=== PATIENT | female | born 1995 | race African-American/Black ===

== ENCOUNTER 2023-02-05 13:13 | Emergency (ER) | payer SELFPAY ==
--- OUTSIDE RECORDS SUMMARY | 2023-02-05 13:17 | XMS REPORT | Continuity of Care Document ---
:1995 Author Organization [facility] t Address [address] [place] [address] Care Team Providers Name Role Phone Pcp, Patient Does Not Have A Primary Care Physician [phone] MIRTA AYOUB Attending Clinician Unavailable Mirta Parekh Attending Clinician AVE BUTTERFIELD Attending Clinician Unavailable Ave Butter[place] DO Attending Clinician GABBIE DIEGO Attending Clinician Unavailable Gabbie Diego DO Attending Clinician Sharon Youngblood Attending Clinician SHARON MAR Attending Clinician Unavailable IRAM BURTON Attending Clinician Unavailable Constance Schroeder Attending Clinician Unavailable Constance Schroeder Attending Clinician Unavailable Gary Mims Attending Clinician Unavailable FelicitaGary leblanc Attending Clinician Unavailable Constance Schroeder Admitting Clinician Unavailable FelicitaGary leblanc Admitting Clinician Unavailable Payers Payer Name Policy Type Policy Number Effective Date Expiration Date S ource Problems Condition Condition Condition Status Onset Resolution Last Treating Co mments Source Name Details Category Date Date Treatment Clinician Date No known No known Disease Unive rs active active ity of problems problems [facility] Allergies, Adverse Reactions, Alerts Allergy Allergy Status Severity Reaction(s) Onset Inactive Treating Comm ents Source Name Type Date Date Clinician ANIL DRUG Active Anaphylaxis Unive rs INGREDI 01-17 ity of 00:00: [place] 00 Medical Branch Anil Propensi Active Anaphylaxis Uni vers ty to 01-17 ity of adverse 00:00: [place] reaction 00 Medical s Branch No Known DA Active U [facility] Allergie 12-18 Clear s 00:00: [place] 00 [facility] No Known Drug Active [facility] NO KNOWN Drug Active [facility] ALLERG Class ity of S [facility] Social History Social Habit Start Date Stop Date Quantity Comments Source Exposure to 2022-07-10 2022-07-20 Not sure [facility] SARS-CoV-2 (event) 00:00:00 15:59:00 [facility] Sex Assigned At [birth year] [facility] [place] 00:00:00 00:00:00 Medical Branch Smoking Status Start Date Stop Date Source Tobacco smoking consumption [facility] Medical unknown Branch Medications Ordered Filled Start Stop Current Ordering Indication Dosage Frequency Signature Comments Components Source Medication Medication Date Date Medication? Clinician (SIG) Name Name Nitrofurant 2022- No [id number] 100mg Take 1 Univers oin&Nit. 07-20 capsule by ity of [place] 00:00: 05:59 mouth in [place] 100 mg 00 :00 the Medical capsule morning Branch and 1 capsule in the evening. Do all this for 5 days. metroNIDAZO 2021-06 Yes [id number] 500mg Take 1 Univers LE 500 mg 0-15 tablet by ity o f tablet 00:00: mouth in [place] 00 the Medical morning Branch and 1 tablet in the evening. metroNIDAZO 2021-06 Yes [id number] 500mg Take 1 Univers LE 500 mg 0-15 tablet by ity o f tablet 00:00: mouth in [place] 00 the Medical morning Branch and 1 tablet in the evening. cefTRIAXone Yes 500mg 500 mg, Un ambika (ROCEPHIN) 01-18 Intramuscu ity of injection 02:45: lar, Q24H, [place] 500 mg 00 First dose Medical on [facility] Branch 01/17/22 at 2145, Until Discontinu ed, RADAMES
Re ason for Anti-Infec tive: Empiric Therapy for Suspected Infection< br>Empiric Therapy Site: Pelvic
Duration of therapy: 72 hours azithromyci 2021- No 1000mg 1,000 mg, Univers n 01-18 Oral, ity of (ZITHROMAX) 01:45: 01:48 ONCE, 1 [place] tablet 00 :00 dose, On Medical 1,000 mg [facility] Branch 01/17/22 at 2045, RADAMES
Re ason for Anti-Infec tive: Empiric Therapy for Suspected Infection< br>Empiric Therapy Site: Pelvic
Duration of therapy: 72 hours sulfamethox 2021- No [id number] 1{tbl} Take 1 Univers azole-trime 01-17 tablet by it y of thoprim 00:00: 04:59 mouth [place] 800-160 mg 00 :00 every 12 Medic al per tablet (twelve) Branc h hours for 3 days. cefTRIAXone Yes 500mg 500 mg, Un ambika (ROCEPHIN) 01-14 Intramuscu ity of injection 23:00: lar, Q24H, [place] 500 mg 00 First dose Medical on [place] Branch 01/14/21 at 1800, Until Discontinu ed, RADAMES
Re ason for Anti-Infec tive: Empiric Therapy for Suspected Infection< br>Empiric Therapy Site: Abdominal< br>Duratio n of therapy: 72 hours doxycycline 2020- No 100mg 100 mg, U nivers hyclate 01-14 Oral, ity of (Vibramycin 23:00: 22:05 ONCE, 1 [place] capsule 00 :00 dose, Sun Medic al 100 mg 01/14/21 at Branch 1800, RADAMES
Re ason for Anti-Infec tive: Documented Infection< br>Documen kayce Infection Site: Pelvic
Duration of Therapy: 7 days cephALEXin 2020- No [id number] 500mg Take 1 Univers 500 mg 01-14 tablet by ity of tablet 00:00: 04:59 mouth 2 [place] 00 :00 (two) Medical times [place] daily for 7 days. doxycycline 2020- No [id number] 100mg Take 1 Univers hyclate 100 01-14 capsule by i ty of mg capsule 00:00: 04:59 mouth 2 [place] as 00 :00 (two) Medical times [place] daily for 7 days. Vital Signs Vital Name Observation Time Observation Value Comments Source Systolic blood 2022-07-21 00:37:00 117 mm[Hg] Univer sity of [facility] Diastolic blood 2022-07-21 00:37:00 80 mm[Hg] Unive rsity of [facility] Heart rate 2022-07-21 00:37:00 80 /min Universi ty of [facility] Respiratory rate 2022-07-21 00:37:00 18 /min [facility] Oxygen saturation in 2022-07-21 00:37:00 100 /min [facility] Arterial blood by [facility] Pulse oximetry Branch Body temperature 2022-07-20 21:57:00 37.11 Mary [facility] ersity [facility] Body height 2022-07-20 21:57:00 157.5 cm Universi ty [facility] Body weight 2022-07-20 21:57:00 55.792 kg Universi ty [facility] BMI 2022-07-20 21:57:00 22.50 kg/m2 Universi ty [facility] Systolic blood 2022-04-13 21:34:00 102 mm[Hg] Univer sity of [facility] Diastolic blood 2022-04-13 21:34:00 72 mm[Hg] Unive rsity of [facility] Heart rate 2022-04-13 21:34:00 85 /min Universi ty [facility] Body temperature 2022-04-13 21:34:00 36.56 Mary Univ ersity of [facility] Respiratory rate 2022-04-13 21:34:00 14 /min Univ ersity [facility] Body height 2022-04-13 21:34:00 154.9 cm Universi ty [facility] Body weight 2022-04-13 21:34:00 56.7 kg Universi ty [facility] [place] [facility] BMI 2022-04-13 21:34:00 23.62 kg/m2 [facility]i [facility] [place] [facility] Oxygen saturation in 2022-04-13 21:34:00 99 /min University of Arterial blood by [facility] Pulse oximetry Branch Systolic blood 2022-01-18 02:45:25 101 mm[Hg] Univer sity of pressure [place] [facility] Diastolic blood 2022-01-18 02:45:25 74 mm[Hg] Unive rsity of pressure [place] [facility] Heart rate 2022-01-18 02:45:25 73 /min Universi ty [facility] [place] [facility] Body temperature 2022-01-18 02:45:25 36.61 Mary Univ [facility] [place] [facility] Respiratory rate 2022-01-18 02:45:25 16 /min Univ ers[facility] [place] [facility] Oxygen saturation in 2022-01-18 02:45:25 99 /min University of Arterial blood by [facility] Pulse oximetry Branch Body height 2022-01-18 01:33:00 154.9 cm Universi ty [facility] [place] [facility] Body weight 2022-01-18 01:33:00 56.7 kg [facility]i ty [facility] [place] [facility] BMI 2022-01-18 01:33:00 23.62 kg/m2 [facility] [place] [facility] Systolic blood 2021-01-14 20:22:00 106 mm[Hg] Univer sity of pressure [place] [facility] Diastolic blood 2021-01-14 20:22:00 69 mm[Hg] Unive rsity of pressure [place] [facility] Heart rate 2021-01-14 20:22:00 87 /min Universi ty [facility] [place] [facility] Body temperature 2021-01-14 20:22:00 36.44 Mary Univ [facility] [place] [facility] Respiratory rate 2021-01-14 20:22:00 14 /min Univ ers[facility] [place] [facility] Body height 2021-01-14 20:22:00 154.9 cm [facility]i [facility] [place] [facility] Body weight 2021-01-14 20:22:00 52.164 kg [facility] [place] [facility] BMI 2021-01-14 20:22:00 21.73 kg/m2 [facility] [place] [facility] Oxygen saturation in 2021-01-14 20:22:00 98 /min University of Arterial blood by [facility] Pulse oximetry Branch Height/Length 2021-07-17 12:08:20 156 cm Measured Height/Length 2021-07-17 12:08:16 156 cm Measured Height/Length 2021-07-17 12:08:14 156 cm Measured Height/Length 2020-02-28 22:08:30 Measured Height/Length 2020-01-02 07:39:58 Measured Height/Length 2021-07-17 11:12:12 154 cm Measured Procedures Procedure Date / Time Performed Performing Clinician Sourc e URINALYSIS 2022-07-20 22:33:00 Mirta Ayoub [place] [facility] CONSENT/REFUSAL FOR 2022-07-20 21:51:15 Doctor Unassigned, No Un [facility] [place] DIAGNOSIS AND Name Medical Branch TREATMENT POCT TEST 2022-04-13 21:49:00 [address] Butterfield [facility] URINALYSIS 2022-04-13 21:47:00 Ave Butterfield [facility] ADC CLC OR LCC ONLY - 2022-04-13 21:47:00 Ave Butterfield [facility] CONSENT/REFUSAL FOR 2022-04-13 21:27:36 Doctor Unassigned, No Un [facility] [place] DIAGNOSIS AND Name Medical Branch TREATMENT POCT TEST 2022-01-18 01:54:00 [facility] [facility] 2022-01-18 01:45:00 Gabbie Diego [facility] NOTICE OF PRIVACY 2022-01-18 01:24:56 Doctor Unassigned, No [facility] Name Medical Branch CONSENT/REFUSAL FOR 2022-01-18 01:24:02 Doctor Unassigned, No Un [facility] [place] DIAGNOSIS AND Name Medical Branch TREATMENT POCT TEST 2021-01-14 21:08:00 Sharon Mar [facility] [facility] 2021-01-14 21:04:00 Sharon Mar [facility] NOTICE OF PRIVACY 2021-01-14 20:20:33 Doctor Unassigned, No Univ [facility] [place] [facility] Name Medical Branch CONSENT/REFUSAL FOR 2021-01-14 20:19:39 Doctor Unassigned, No Un [facility] DIAGNOSIS AND Name Medical Branch TREATMENT Encounters Start End Encounter Admission Attending Care Care Encounter Source Date/Time Date/Time Type Type Clinicians Facility Department ID 2022-07-20 2022-07-20 Emergency X ANITRA [facility] ERT [id number] Univers 15:59:00 18:43:00 MIRTA porras [facility] 2022-07-20 2022-07-20 Emergency Anitra [facility] [id number] Univers 15:59:00 18:43:00 Mirta Fuentes JENNIFER [id number] i ty of [facility] [id number] [facility] [id number] [address] 2022-04-13 2022-04-13 Emergency X SINGER [facility] ERT [id number] Univers 16:51:00 18:13:[address] porras [facility] 2022-04-13 2022-04-13 Emergency [facility] [id number] Univers 16:51:00 18:13:[address] RODRIGUEZ [id number] i ty [facility] [id number] [facility] [id number] [address] 2022-01-17 2022-01-17 Emergency X JOHNATHON [facility] ERT [id number] Univers 20:36:00 22:28:00 GABBIE porras [facility] 2022-01-17 2022-01-17 Emergency [facility] [id number] Univers 20:36:00 22:28:00 Gabbie RODRIGUEZ [id number] ity [facility] [id number] [facility] [id number] [address] 2021-01-14 2021-01-14 Emergency [facility] [id number] Univers 15:22:00 17:26:00 Sharon Rodriguez [id number] ity of [place] 4.2.7.2.686 [facility] [id number] [address] 2021-01-14 2021-01-14 Emergency X MIHAI, [facility] ERT [id number] Univers 15:22:00 17:26:00 SHARON porras [facility] 2020-06-13 2020-06-13 Emergency E JOSEPHINE, MHBL MHBL [id number] MHBL 20:08:00 22:15:00 REEVA 2020-02-28 2020-02-29 Emergency 1 [facility]re [facility] [id number] 21:59:00 00:04:00 Constance Schroeder [facility] 2020-02-28 2020-02-28 Emergency [facility] [id number] 21:59:00 21:59:[id number] [facility] 2020-01-02 2020-01-02 Emergency 1 Felicita Gary [facility] [id number] 07:09:00 07:09:00 Felicita Gary -[id number] [facility] 2020-01-02 2020-01-02 Emergency [facility] [id number] 07:09:00 07:09:00 [facility] Results Test Description Test Time Test Comments Results Result Comments Source POCT TEST 2022-04-13 21:49:00 Test Item Value Reference Range Interpretation Comme nts POCT PREG (test code = 1605) negative On board controls acceptable with C Line (test code = 3574) present POCT PREG LOT # (test code = 3575) [id number] POCT PREG TEST DATE (test code = 3576) 08/28/2023 Lab Interpretation (test code = 95145-3) [id number] 01:54:00 Test Item Value Reference Range Interpretation Comments POCT PREG (test code = 1605) negative On board controls acceptable with present C Line (test code = 3574) POCT PREG LOT # (test code = 3575) [id number] POCT PREG TEST DATE (test 04/29/2023 code = 3576) Lab Interpretation (test code = Normal 93542-9) [facility] 21:40:27 Test Item Value Reference Range Interpretation Comments APPEARANCE (test code = Hazy Clear A 1611212345) COLOR (test code = Yellow Yellow 7628803654) PH (test code = 4.8-8.0 6638709948) SP GRAVITY (test code = 1.003-1.030 0936547494) GLU U QUAL (test code = Normal Normal 6035313680) BLOOD (test code = Negative Negative 2544984662) KETONES (test code = Negative Negative 4589108268) PROTEIN (test code = Negative Negative 2887-8) UROBILIN (test code = Normal Normal 3816989957) BILIRUBIN (test code = Negative Negative 0266645044) NITRITE (test code = Positive Negative A 3038597896) LEUK DONNY (test code = 250/uL Negative A 5825250001) RBC/HPF (test code = See_Comment [Autom ated message] 7870206843) The system Picodeon generated this result transmitted ref erence range: 0 - 3 HP F. The reference range was not used to int erpret this result as normal/abnormal . WBC/HPF (test code = See_Comment H [Autom ated message] 0933180398) The system [employer]icode[employer] generated this result transmitted ref erence range: 0 - 5 HP F. The reference range was not used to int erpret this result as normal/abnormal . BACTERIA (test code = Many Negative A 1585932451) MUCOUS (test code = Moderate Negative LPF A 7752650474) SQ EPITH (test code = HPF 8490323020) Lab Interpretation (test Abnormal code = 87329-5) [facility] [id number] 21:08:00 Test Item Value Reference Range Interpretation Comments POCT PREG (test code = 1605) negative On board controls acceptable with present C Line (test code = 3574) POCT PREG LOT # (test code = 3575) [id number] POCT PREG TEST DATE (test 06-29-2022 code = 3576) Lab Interpretation (test code = Normal 53567-1) [facility] [id number] 12:10:16 Test Item Value Reference Range Interpretation Comments Neisseria gonorrhoeae, Negative Negative N Perfo rmed At: [facility] (test code = [facility] Neisseria gonorrhoeae, Misael [id number]) [address] [place], [place] [id number] er Christie Everett MD Ph:[phone] Chlamydia trachomatis, Negative Negative N [facility] (test code = Chlamydia trachomatis, [facility]) Urine [id number] 10:29:51 Test Item Value Reference Range Interpretation Comments ORGANISM (test code = Enterococcus group D ORGANISM) Ampicillin (test code = S Amp) Ciprofloxacin (test code S = Cipro) Gentamicin synergy (test S code = Gent-Syn) Levofloxacin (test code S = Levo) Linezolid (test code = S Linez) Nitrofurantoin (test S code = Nitro) Penicillin (test code = S Pen) Streptomycin synergy S (test code = Strep-Syn) Tetracycline (test code R = Tetra) Vancomycin (test code = S Vanc) Final Report (test code >=100,000 cfu/ml = Final Report) Enterococcus group D C Urine Added by [id number] Qualitative [id number] 23:22:47 Test Item Value Reference Range Interpretation Comments hCG Ur (test code = Negative If the r esult is hCG Ur) "Negative" in p atients suspected to be , recom mend retest with a s ample obtained 48 to 72 hours later, or by ordering a quantitative as say. If the result is "Borderline" te sting should be repea kayce in 48 to 72 hours. Lot # (test code = [id number] N Lot #) Expiration Dt (test 2021-02-27 N code = Expiration Dt) Neg Control (test Negative code = Neg Control) Pos Control (test Positive code = Pos Control) Internal QC (test Acceptable code = Internal QC) Beta HCG [id number] 23:21:47 Test Item Value Reference Range Interpretation Comments HCG, Beta Quantitative <2.6 mIU/mL N 17-54 (test code = HCG, Beta (Non- )?41 Quantitative) (Post-menopaus al) Urinalysis [id number] 23:21:01 Test Item Value Reference Range Interpretation Comments UA WBC (test code = UA WBC) 0-5 0-5 UA RBC (test code = UA RBC) 0-5 0-5 UA Bacteria (test code = UA Moderate A Bacteria) UA Squam Epithelial (test code = UA 30-50 A Squam Epithelial) UA Mucous (test code = UA Mucous) Moderate A Urinalysis with Culture, if [id number] 23:08:20 Test Item Value Reference Range Interpretation Comments UA Color (test code = UA Color) YELLO Yellow UA Appear (test code = UA Appear) SCLD Clear A UA pH (test code = UA pH) 7.0 UA Spec Grav (test code = UA Spec 1.025 1.001-1.035 Grav) UA Glucose (test code = UA NEG Negative Glucose) UA Bili (test code = UA Bili) Small mg/dL N UA Ketones (test code = UA 15 mg/dL Negative A Ketones) UA Blood (test code = UA Blood) NEG Negative UA Protein (test code = UA 30 mg/dL N Protein) UA Urobilinogen (test code = UA 1 mg/dL >0.2 A Urobilinogen) UA Nitrite (test code = UA NEG Negative Nitrite) UA Leuk Est (test code = UA Leuk NEG Negative Est) UA Micro Ind? (test code = UA Indicated Not Indicated A Micro Ind?) Comprehensive Metabolic [id number] 23:06:52 Test Item Value Reference Range Interpretation Comments Sodium Level (test code = Sodium 140.0 mmol/L 136.0-145.0 Level) Potassium Level (test code = 4.30 mmol/L 3.50-5.10 Potassium Level) Chloride Level (test code = 107.0 mmol/L 98.0-107.0 Chloride Level) CO2 (test code = CO2) 26 mmol/L 20-31 Anion Gap (test code = Anion 7.1 mmol/L 5.0-15.0 Gap) BUN (test code = BUN) 13 mg/dL 9-23 Creatinine Level (test code = 0.66 mg/dL 0.55-1.02 Creatinine Level) BUN/Creat Ratio (test code = 19.7 ratio 10.0-20.0 BUN/Creat Ratio) Glucose Level (test code = 86 mg/dL 74-106 Glucose Level) Calcium Level (test code = 9.9 mg/dL 8.3-10.6 Calcium Level) Alk Phos (test code = Alk Phos) 65 U/L 46-116 Bilirubin Total (test code = 0.5 mg/dL 0.2-1.1 Bilirubin Total) Albumin Level (test code = 5.1 g/dL 3.2-4.8 H Albumin Level) Protein Total (test code = 7.5 g/dL 5.7-8.2 Protein Total) ALT (test code = ALT) 16 U/L 10-49 AST (test code = AST) 20 U/L <=34 Globulin (test code = Globulin) 2.4 g/dL 2.3-3.5 A/G Ratio (test code = A/G 2.1 g/dL 0.8-2.0 H Ratio) Hemolysis (test code = 0 g/dL 1-2 H Hemolysis) Icterus (test code = Icterus) 0 g/dL 1-2 H Lipemia (test code = Lipemia) 0 g/dL 1-2 H Comprehensive Metabolic [id number] 23:06:52 Test Item Value Reference Range Interpretation Comments Sodium Level (test 140.0 mmol/L 136.0-145.0 code = Sodium Level) Potassium Level 4.30 mmol/L 3.50-5.10 (test code = Potassium Level) Chloride Level (test 107.0 mmol/L 98.0-107.0 code = Chloride Level) CO2 (test code = 26 mmol/L 20-31 CO2) Anion Gap (test code 7.1 mmol/L 5.0-15.0 = Anion Gap) BUN (test code = 13 mg/dL 9-23 BUN) Creatinine Level 0.66 mg/dL 0.55-1.02 (test code = Creatinine Level) BUN/Creat Ratio 19.7 ratio 10.0-20.0 (test code = BUN/Creat Ratio) Glucose Level (test 86 mg/dL 74-106 code = Glucose Level) Calcium Level (test 9.9 mg/dL 8.3-10.6 code = Calcium Level) Alk Phos (test code 65 U/L 46-116 = Alk Phos) Bilirubin Total 0.5 mg/dL 0.2-1.1 (test code = Bilirubin Total) Albumin Level (test 5.1 g/dL 3.2-4.8 H code = Albumin Level) Protein Total (test 7.5 g/dL 5.7-8.2 code = Protein Total) ALT (test code = 16 U/L 10-49 ALT) AST (test code = 20 U/L <=34 AST) Globulin (test code 2.4 g/dL 2.3-3.5 = Globulin) A/G Ratio (test code 2.1 g/dL 0.8-2.0 H = A/G Ratio) eGFR AA (test code = >60 >=60 eGFR (e stimated eGFR AA) mL/min/1.73 m2 Glomerular Filtration Rate ) is an estimated va lue, calculated from the patient's serum creatinine usin g the MDRD equation. It is NOT the patient 's actual GFR. The eGFR provides a more clinically usef ul measure of kidn ey disease than se rum creatinine alone.This calculation jocelyn es sex and race in to account, if the information is provided. If th e race is not provided, and t he patient is -Morena n, multiply by 1.2 12. If sex is not provided, and t he patient is fema le, multiply by 0.7 42. Results for pat ients <18 years of ag e have not been validated by th e MDRD study and should be interpreted wit h caution. eGFR R esult Interpretation: eGFR > or = 60 is in the Normal RangeeGF R < 60 may mean kid jim diseaseeGFR < 1 5 may mean kidney failure Rang es recommended by the National Kidney Foundation, http://nkdep.ni h.gov Hemolysis (test code 0 g/dL 1-2 H = Hemolysis) Icterus (test code = 0 g/dL 1-2 H Icterus) Lipemia (test code = 0 g/dL 1-2 H Lipemia) Lipase [id number] 23:06:52 Test Item Value Reference Range Interpretation Comments Lipase Level (test code = Lipase 33 U/L 12-53 Level) Comprehensive Metabolic [id number] 23:06:52 Test Item Value Reference Range Interpretation Comments Sodium Level (test 140.0 mmol/L 136.0-145.0 code = Sodium Level) Potassium Level 4.30 mmol/L 3.50-5.10 (test code = Potassium Level) Chloride Level (test 107.0 mmol/L 98.0-107.0 code = Chloride Level) CO2 (test code = 26 mmol/L 20-31 CO2) Anion Gap (test code 7.1 mmol/L 5.0-15.0 = Anion Gap) BUN (test code = 13 mg/dL 9-23 BUN) Creatinine Level 0.66 mg/dL 0.55-1.02 (test code = Creatinine Level) BUN/Creat Ratio 19.7 ratio 10.0-20.0 (test code = BUN/Creat Ratio) Glucose Level (test 86 mg/dL 74-106 code = Glucose Level) Calcium Level (test 9.9 mg/dL 8.3-10.6 code = Calcium Level) Alk Phos (test code 65 U/L 46-116 = Alk Phos) Bilirubin Total 0.5 mg/dL 0.2-1.1 (test code = Bilirubin Total) Albumin Level (test 5.1 g/dL 3.2-4.8 H code = Albumin Level) Protein Total (test 7.5 g/dL 5.7-8.2 code = Protein Total) ALT (test code = 16 U/L 10-49 ALT) AST (test code = 20 U/L <=34 AST) Globulin (test code 2.4 g/dL 2.3-3.5 = Globulin) A/G Ratio (test code 2.1 g/dL 0.8-2.0 H = A/G Ratio) eGFR AA (test code = >60 >=60 eGFR (e stimated eGFR AA) mL/min/1.73 m2 Glomerular Filtration Rate ) is an estimated va lue, calculated from the patient's serum creatinine usin g the MDRD equation. It is NOT the patient 's actual GFR. The eGFR provides a more clinically usef ul measure of kidn ey disease than se rum creatinine alone.This calculation jocelyn es sex and race in to account, if the information is provided. If th e race is not provided, and t he patient is -Morena n, multiply by 1.2 12. If sex is not provided, and t he patient is fema le, multiply by 0.7 42. Results for pat ients <18 years of ag e have not been validated by th e MDRD study and should be interpreted wit h caution. eGFR R esult Interpretation: eGFR > or = 60 is in the Normal RangeeGF R < 60 may mean kid jim diseaseeGFR < 1 5 may mean kidney failure Rang es recommended by the National [facility], http://nkdep.ni h.gov eGFR Non-AA (test >60.00 >=60.00 eGFR (hernando mated code = eGFR Non-AA) mL/min/1.73 m2 Glomer ular Filtration Rate ) is an estimated va lue, calculated from the patient's serum creatinine usin g the MDRD equation. It is NOT the patient 's actual GFR. The eGFR provides a more clinically usef ul measure of kidn ey disease than se rum creatinine alone.This calculation jocelyn es sex and race in to account, if the information is provided. If th e race is not provided, and t he patient is -[place] n, multiply by 1.2 12. If sex is not provided, and t he patient is fema le, multiply by 0.7 42. Results for pat ients <18 years of ag e have not been validated by th e MDRD study and should be interpreted wit h caution. eGFR R esult Interpretation: eGFR > or = 60 is in the Normal RangeeGF R < 60 may mean kid jim diseaseeGFR < 1 5 may mean kidney failure Rang es recommended by the [employer], http://nkdep.ni h.gov Hemolysis (test code 0 g/dL 1-2 H = Hemolysis) Icterus (test code = 0 g/dL 1-2 H Icterus) Lipemia (test code = 0 g/dL 1-2 H Lipemia) Complete Blood Count with [id number] 22:51:58 Test Item Value Reference Range Interpretation Comments WBC (test code = WBC) 11.7 x10 4.4-10.5 H RBC (test code = RBC) 5.21 x10 3.75-5.20 H Hgb (test code = Hgb) 14.4 g/dL 12.2-14.8 Hct (test code = Hct) 47.9 % 36.5-44.4 H MCV (test code = MCV) 91.90 fL 80.00-100.00 MCHC (test code = 30.10 g/dL 32.00-37.50 L MCHC) MCH (test code = MCH) 27.6 pg 27.0-32.5 RDW CV (test code = 11.9 % 11.5-14.5 RDW CV) Platelets (test code = 298.0 x10 140.0-440.0 Platelets) MPV (test code = MPV) 10.1 fL N Slide Review (test Auto Auto Result cr eated by code = Slide Review) GL_SJM_ SLIDE_REV_AUTO nRBC (test code = 0 N nRBC) NRBC Abs (test code = 0.00 x10 N NRBC Abs) Automated [id number] 22:51:58 Test Item Value Reference Range Interpretation Comments Neutro Auto (test code = Neutro 59.7 % 36.0-70.0 Auto) Lymph Auto (test code = Lymph Auto) 34.8 % 12.0-44.0 [place] Auto (test code = [place] Auto) 3.9 % 0.0-11.0 Eos, Auto (test code = Eos, Auto) 0.7 % 0.0-7.0 Basophil Auto (test code = Basophil 0.3 % 0.0-2.0 Auto) Neutro Absolute (test code = Neutro 7.0 x10 1.6-7.4 Absolute) Lymph Absolute (test code = Lymph 4.07 x10 .50-4.60 Absolute) [place] Absolute (test code = [place] .46 x10 .00-1.20 Absolute) Eos Absolute (test code = Eos 0.08 x10 0.00-0.74 Absolute) Baso Absolute (test code = Baso 0.04 x10 0.00-0.21 Absolute) IG [id number] 22:51:58 Test Item Value Reference Range Interpretation Comments IG (test code = IG) 0.6 % 0.0-5.0 IG Abs (test code = IG Abs) 0 x10 N Wet [id number] 22:43:51Many epithelial cells Many White Blood Cells Many Bacteria No Clue Cells Seen No Trichomonas Seen NoYeastXR Abdomen KUB 1 View 2020-01-02 09:02:29Patient: ADOLFO ROCHE Date/Time01/02/2020 08:51 CDTReason for Examconstipation;Abdominal painReportCLINICAL HISTORY: Abdominal pain;constipation.Location: R16.FINDINGS: No comparison studies. An AP supine view of the abdomen demonstrates a nonspecific bowel gas pattern. There isair within the colon. There appears to be mild stool within the right and left colon. No skeletal orsoft tissue abnormalities are identified.IMPRESSION:1. Nonspecific bowel gas pattern. There appears to be mild stool within the right and left colon. Final Dictated by: MD Mahendra, Edisated DT/TM: 01/02/2020 9:01 amSigned by: MD Mccray RolandSigned (Electronic Signature): 01/02/2020 9:02 am
--- NOTE | 2023-02-05 15:02 | EDPHYS ---
Physician Documentation [facility] Name: Bridgette Espinosa Age: 27 yrs Sex: Female : 1995 Arrival Date: 02/05/2023 Time: 13:13 Bed IW1 Private MD: ED Physician Alexandra Chaidez HPI: 02/05 15:02 This 27 yrs old Black Female presents to ER via Ambulatory with complaints of Dizziness.cp3 15:02 The patient is a 27-year-old female who presents to the ED secondary to a near syncopal cp3 episode while at work. 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 The patient endorses that the symptoms have resolved, no mental status changes, no loss of postural tone, no chest pain no shortness of breath no dizziness at present. Patient denies any significant past medical, surgical, family history. Historical: - Allergies: 13:52 No Known Allergies; cm10 - Home Meds: 13:52 None [Active]; cm10 - PMHx: 13:52 None; cm10 - PSHx: 13:52 None; cm10 - Immunization history:: Adult Immunizations. - Social history:: Smoking status: Patient denies any tobacco usage or history of. ROS: 15:03 Constitutional: Negative for fever, chills, and weight loss, Eyes: Negative for injury, cp3 pain, redness, and discharge, ENT: Negative for injury, pain, and discharge, Neck: Negative for injury, pain, and swelling, Cardiovascular: Negative for chest pain, palpitations, and edema, Respiratory: Negative for shortness of breath, cough, wheezing, and pleuritic chest pain, Abdomen/GI: Negative for abdominal pain, nausea, vomiting, diarrhea, and constipation, Back: Negative for injury and pain, : Negative for injury, bleeding, discharge, and swelling, MS/Extremity: Negative for injury and deformity, Skin: Negative for injury, rash, and discoloration, Neuro: Negative for headache, weakness, numbness, tingling, and seizure, Psych: Negative for depression, anxiety, suicide ideation, homicidal ideation, and hallucinations, Allergy/Immunology: Negative for hives, rash, and allergies, Endocrine: Negative for neck swelling, polydipsia, polyuria, polyphagia, and marked weight changes, Hematologic/Lymphatic: Negative for swollen nodes, abnormal bleeding, and unusual bruising. 15:03 All other systems are negative. Exam: 15:03 Constitutional: This is a well developed, well nourished patient who is awake, alert, cp3 and in no acute distress. Head/Face: Normocephalic, atraumatic. Eyes: Pupils equal round and reactive to light, extra-ocular motions intact. Lids and lashes normal. Conjunctiva and sclera are non-icteric and not injected. Cornea within normal limits. Periorbital areas with no swelling, redness, or edema. ENT: Nares patent. No nasal discharge, no septal abnormalities noted. Tympanic membranes are normal and external auditory canals are clear. Oropharynx with no redness, swelling, or masses, exudates, or evidence of obstruction, uvula midline. Mucous membranes moist. Neck: Trachea midline, no thyromegaly or masses palpated, and no cervical lymphadenopathy. Supple, full range of motion without nuchal rigidity, or vertebral point tenderness. No Meningismus. Chest/axilla: Normal chest wall appearance and motion. Nontender with no deformity. No lesions are appreciated. Cardiovascular: Regular rate and rhythm with a normal S1 and S2. No gallops, murmurs, or rubs. Normal PMI, no JVD. No pulse deficits. Respiratory: Lungs have equal breath sounds bilaterally, clear to auscultation and percussion. No rales, rhonchi or wheezes noted. No increased work of breathing, no retractions or nasal flaring. Abdomen/GI: Soft, non-tender, with normal bowel sounds. No distension or tympany. No guarding or rebound. No evidence of tenderness throughout. Back: No spinal tenderness. No costovertebral tenderness. Full range of motion. Skin: Warm, dry with normal turgor. Normal color with no rashes, no lesions, and no evidence of cellulitis. MS/ Extremity: Pulses equal, no cyanosis. Neurovascular intact. Full, normal range of motion. Neuro: Awake and alert, GCS 15, oriented to person, place, time, and situation. Cranial nerves II-XII grossly intact. Motor strength 5/5 in all extremities. Sensory grossly intact. Cerebellar exam normal. Normal gait. Psych: Awake, alert, with orientation to person, place and time. Behavior, mood, and affect are within normal limits. Vital Signs: 13:50 BP 123 / 96; Pulse 83; Resp 18 S; Temp 98.4(TE); Pulse Ox 100% ; Weight 53.98 kg; cm10 Height 5 ft. 1 in. ; Pain 0/10; 13:50 Body Mass Index 22.48 (53.98 kg, 154.94 cm) cm10 13:50 Pain Scale: Adult cm10 MDM: 14:29 Patient medically screened. cp3 15:03 Differential diagnosis: generalized weakness, hypovolemia, near-syncope, vertigo. cp3 15:03 Data reviewed: vital signs, nurses notes. Consideration of Admission/Observation cp3 Escalation of care including admission/observation considered. Test considered but Not performed: EKG: Patient states that her symptoms have resolved and prefers to do no further labs or diagnostic evaluation at this time. Other Details Symptoms resolved and declines further evaluation, diagnostic workup. Administered Medications: No medications were administered Disposition Summary: 02/05/23 15:01 Discharge Ordered Location: Home cp3 Problem: new cp3 Symptoms: are resolved cp3 Condition: Stable cp3 Diagnosis - Dehydration cp3 - Syncope Near cp3 Followup: cp3 - With: Private Physician - When: - Reason: If symptoms return Discharge Instructions: - Discharge Summary Sheet cp3 - Dehydration, Adult cp3 - Near-Syncope cp3 Forms: - Medication Reconciliation Form cp3 - Thank You Letter cp3 - Antibiotic Education cp3 - Prescription Opioid Use cp3 - Patient Portal Instructions cp3 Signatures: Alexandra Chaidez MD MD cp3 Maira Bill, RN RN cm10
--- NOTE | 2023-02-05 15:02 | ER ---
Nurse's Notes [facility] Name: Bridgette Espinosa Age: 27 yrs Sex: Female : 1995 Arrival Date: 02/05/2023 Time: 13:13 Bed IW1 Private MD: Diagnosis: Dehydration;Syncope Near Presentation: 02/05 13:50 Chief complaint: Patient states: that she thinks that she is dehydrated. Pt states that cm10 her AC has been out at home and today she was at work and she almost passed out due to there not being any AC. Pt states that she has been really thirsty recently. Coronavirus screen: Vaccine status: Patient reports being unvaccinated. Ebola Screen: Patient denies travel to an Ebola-affected area in the 21 days before illness onset. No symptoms or risks identified at this time. Initial Sepsis Screen: Does the patient meet any 2 criteria? No. Patient's initial sepsis screen is negative. Does the patient have a suspected source of infection? No. Patient's initial sepsis screen is negative. Risk Assessment: Do you want to hurt yourself or someone else? Patient reports no desire to harm self or others. Onset of symptoms was February 05, 2023. 13:50 Method Of Arrival: Ambulatory cm10 13:50 Acuity: JAY 3 cm10 Historical: - Allergies: 13:52 No Known Allergies; cm10 - Home Meds: 13:52 None [Active]; cm10 - PMHx: 13:52 None; cm10 - PSHx: 13:52 None; cm10 - Immunization history:: Adult Immunizations. - Social history:: Smoking status: Patient denies any tobacco usage or history of. Screenin:52 [facility] ED Fall Risk Assessment (Adult) History of falling in the last 3 months, cm10 including since admission No falls in past 3 months (0 pts) Confusion or Disorientation No (0 pts) Intoxicated or Sedated No (0 pts) Impaired Gait No (0 pts) Mobility Assist Device Used No (0 pt) Altered Elimination No (0 pt) Score/Fall Risk Level 0 - 2 = Low Risk Oriented to surroundings, Maintained a safe environment, Hourly rounding (assess needs \T\ fall precautionary measures) done. Abuse screen: Denies threats or abuse. Denies injuries from another. Nutritional screening: No deficits noted. Tuberculosis screening: No symptoms or risk factors identified. Assessment: 15:52 General: Appears in no apparent distress. comfortable, Behavior is calm, cooperative, cm10 appropriate for age. Pain: Denies pain. Neuro: No deficits noted. Level of Consciousness is awake, alert, obeys commands, Oriented to person, place, time, situation. Respiratory: No deficits noted. Airway is patent Respiratory effort is even, unlabored, Respiratory pattern is regular, symmetrical. Derm: No deficits noted. Skin is intact, Skin is pink, warm \T\ dry. Vital Signs: 13:50 BP 123 / 96; Pulse 83; Resp 18 S; Temp 98.4(TE); Pulse Ox 100% ; Weight 53.98 kg; cm10 Height 5 ft. 1 in. ; Pain 0/10; 13:50 Body Mass Index 22.48 (53.98 kg, 154.94 cm) cm10 13:50 Pain Scale: Adult cm10 ED Course: 13:16 Patient arrived in ED. mg5 13:37 Alexandra Chaidez MD is Attending Physician. cp3 13:52 Triage completed. cm10 13:52 Arm band placed on Patient placed in waiting room. cm10 15:52 No provider procedures requiring assistance completed. Patient did not have IV access cm10 during this emergency room visit. 15:53 Patient has correct armband on for positive identification. Provided Education on: N/A. cm10 Administered Medications: No medications were administered Medication: 15:52 VIS not applicable for this client. cm10 Outcome: 15:01 Discharge ordered by . cp3 15:52 Discharged to home ambulatory, with family. cm10 15:52 Condition: good 15:52 Discharge instructions given to patient, Instructed on discharge instructions, follow up and referral plans. Demonstrated understanding of instructions, follow-up care. 15:53 Patient left the ED. cm10 Signatures: Alexandra Chaidez MD MD cp3 Maira Bill RN RN [address] [facility] [place]
[2023-02-05 16:54] VITALS: BP 123/96; TEMP 98.4; O2SAT 100
== END 2023-02-05 15:53 | disposition home or self-care (01) ==
LOC: ER 13:13
DX: E86.0 Dehydration (principal); R55 Syncope and collapse

== ENCOUNTER 2023-06-05 16:20 | Emergency (ER) | payer SELFPAY ==
--- OUTSIDE RECORDS SUMMARY | 2023-06-05 16:25 | XMS REPORT | Continuity of Care Document ---
Author Name Unknown Address [address] [facility] 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 Role Phone Pcp, Patient Does Not Have A Primary Care Physic paulette MIRTA AYOUB Attending Clinician Unavailable Mirta Parekh Attending Clinician [phone] [place] Attending Clinician Unavailable Ave Butterfield DO Attending Clinician [phone] Attending Clinician Unavailab Gabbie Haji DO Attending Clinician [phone] Sharon Youngblood Attending Clinician [phone] SHARON MAR Attending Clinician Unavaila Constance Pace Attending Clinician Unavailable Constance Schroeder Attending Clinician Unavailable Gary Mims Attending Clinician Unavailable Gary Mims Attending Clinician Unavailable Constance Schroeder Admitting Clinician Unavailable FelicitaGary leblanc Admitting Clinician Unavailable Payers Payer Name Policy Type Policy Number Effective Date Expirati on Date Source Problems Condition Name Condition Details Condition Category Status Onset Date Resolution Date Last Treatment Date Treating Clinician Comments Source No known active problems No known active problems Disease [facility] Allergies, Adverse Reactions, Alerts Allergy Name Allergy Type Status Severity Reaction(s) Onset Date Inactive Date Treating Clinician Comments Source ANIL DRUG INGREDI Active Anaphylaxis 01-17 00:00: 00 [facility] Kiwi Propensi ty to adverse reaction s Active Anaphylaxis 01-17 00:00: 00 [facility] No Known Allergie s DA Active U 12-18 00:00: 00 [facility] No Known Allergie s Drug Active [facility] NO KNOWN ALLERGIE S Drug Class Active [facility] Social History Social Habit Start Date Stop Date Quantity Comments Source Exposure to SARS-CoV-2 (event) 2022-07-10 00:00:00 2022-07-20 15:59:00 Not sure [facility] Sex Assigned At 1995 00:00:00 1995 00:00:00 [facility] Smoking Status Start Date Stop Date Source Tobacco smoking consumption unknown [facility] Medications Ordered Medication Name Filled Medication Name Start Date Stop Date Current Medication? Ordering Clinician Indication Dosage Frequency Signature (SIG) Comments Components Source Nitrofurant oin&Nit. Macrocryst 100 mg capsule 07-20 00:00: 00 07-26 05:59 :00 No [id number] 100mg Take 1 capsule by mouth in the morning and 1 capsule in the evening. Do all this for 5 days. [facility] metroNIDAZO LE 500 mg tablet 2021-06 00:00: 00 Yes [id number] 500mg Take 1 tablet by mouth in the morning and 1 tablet in the evening. [facility] metroNIDAZO LE 500 mg tablet 2021-06 00:00: 00 Yes [id number] 500mg Take 1 tablet by mouth in the morning and 1 tablet in the evening. [facility] cefTRIAXone (ROCEPHIN) injection 500 mg 01-18 02:45: 00 Yes 500mg 500 mg, Intramuscu lar, Q24H, First dose on Mari 01/17/22 at 2145, Until Discontinu ed, RADAMES
Re ason for Anti-Infec tive: Empiric Therapy for Suspected Infection< br>Empiric Therapy Site: Pelvic
Duration of therapy: 72 hours [facility] azithromyci n (ZITHROMAX) tablet 1,000 mg 01-18 01:45: 00 01-18 01:48 :00 No 1000mg 1,000 mg, Oral, ONCE, 1 dose, On Mari 01/17/22 at 2045, RADAMES
Re ason for Anti-Infec tive: Empiric Therapy for Suspected Infection< br>Empiric Therapy Site: Pelvic
Duration of therapy: 72 hours [facility] sulfamethox azole-trime thoprim 800-160 mg per tablet 01-17 00:00: 00 01-21 04:59 :00 No [id number] 1{tbl} Take 1 tablet by mouth every 12 (twelve) hours for 3 days. [facility] cefTRIAXone (ROCEPHIN) injection 500 mg 01-14 23:00: 00 Yes 500mg 500 mg, Intramuscu lar, Q24H, First dose on 01/14/21 at 1800, Until Discontinu ed, RADAMES
Re ason for Anti-Infec tive: Empiric Therapy for Suspected Infection< br>Empiric Therapy Site: Abdominal< br>Duratio n of therapy: 72 hours [facility] doxycycline hyclate (Vibramycin ) capsule 100 mg 01-14 23:00: 00 01-14 22:05 :00 No 100mg 100 mg, Oral, ONCE, 1 dose, [place] 01/14/21 at 1800, RADAMES
Re ason for Anti-Infec tive: Documented Infection< br>Documen kayce Infection Site: Pelvic
Duration of Therapy: 7 days [facility] cephALEXin 500 mg tablet 01-14 00:00: 00 01-22 04:59 :00 No [id number] 500mg Take 1 tablet by mouth 2 (two) times daily for 7 days. [facility] doxycycline hyclate 100 mg capsule 01-14 00:00: 00 01-22 04:59 :00 No [id number] 100mg Take 1 capsule by mouth 2 (two) times daily for 7 days. [facility] Vital Signs Vital Name Observation Time Observation Value Comments Alfredo amin Systolic blood pressure 2022-07-21 00:37:00 117 mm[Hg] [facility] Diastolic blood pressure 2022-07-21 00:37:00 80 mm[Hg] [facility] Heart rate 2022-07-21 00:37:00 80 /min [facility] Respiratory rate 2022-07-21 00:37:00 18 /min [facility] Oxygen saturation in Arterial blood by Pulse oximetry 2022-07-21 00:37:00 100 /min [facility] Body temperature 2022-07-20 21:57:00 37.11 Mary [facility] Body height 2022-07-20 21:57:00 157.5 cm [facility] Body weight 2022-07-20 21:57:00 55.792 kg [facility] BMI 2022-07-20 21:57:00 22.50 kg/m2 [facility] Systolic blood pressure 2022-04-13 21:34:00 102 mm[Hg] [facility] Diastolic blood pressure 2022-04-13 21:34:00 72 mm[Hg] [facility] Heart rate 2022-04-13 21:34:00 85 /min [facility] Body temperature 2022-04-13 21:34:00 36.56 Mary [facility] Respiratory rate 2022-04-13 21:34:00 14 /min [facility] Body height 2022-04-13 21:34:00 154.9 cm [facility] Body weight 2022-04-13 21:34:00 56.7 kg [facility] BMI 2022-04-13 21:34:00 23.62 kg/m2 [facility] Oxygen saturation in Arterial blood by Pulse oximetry 2022-04-13 21:34:00 99 /min [facility] Systolic blood pressure 2022-01-18 02:45:25 101 mm[Hg] [facility] Diastolic blood pressure 2022-01-18 02:45:25 74 mm[Hg] [facility] Heart rate 2022-01-18 02:45:25 73 /min [facility] Body temperature 2022-01-18 02:45:25 36.61 Mary [facility] Respiratory rate 2022-01-18 02:45:25 16 /min [facility] Oxygen saturation in Arterial blood by Pulse oximetry 2022-01-18 02:45:25 99 /min [facility] Body height 2022-01-18 01:33:00 154.9 cm [facility] Body weight 2022-01-18 01:33:00 56.7 kg [facility] BMI 2022-01-18 01:33:00 23.62 kg/m2 [facility] Systolic blood pressure 2021-01-14 20:22:00 106 mm[Hg] [facility] Diastolic blood pressure 2021-01-14 20:22:00 69 mm[Hg] [facility] Heart rate 2021-01-14 20:22:00 87 /min [facility] Body temperature 2021-01-14 20:22:00 36.44 Mary [facility] Respiratory rate 2021-01-14 20:22:00 14 /min [facility] Body height 2021-01-14 20:22:00 154.9 cm [facility] Body weight 2021-01-14 20:22:00 52.164 kg [facility] BMI 2021-01-14 20:22:00 21.73 kg/m2 [facility] Oxygen saturation in Arterial blood by Pulse oximetry 2021-01-14 20:22:00 98 /min [facility] Height/Length Measured 2021-07-17 12:08:20 156 cm Height/Length Measured 2021-07-17 12:08:16 156 cm Height/Length Measured 2021-07-17 12:08:14 156 cm Height/Length Measured 2020-02-28 22:08:30 Height/Length Measured 2021-07-17 11:12:12 154 cm Height/Length Measured 2020-01-02 07:39:58 Procedures Procedure Date / Time Performed Performing Clinicia n Source URINALYSIS 2022-07-20 22:33:00 [facility] CONSENT/REFUSAL FOR DIAGNOSIS AND TREATMENT 2022-07-20 21:51:15 Doctor Unassigned, [place] [facility] POCT TEST 2022-04-13 21:49:00 Sherley Butterfield [facility] URINALYSIS 2022-04-13 21:47:00 Ave Butterfield [facility] ADC CLC OR [facility] ONLY - WET PREP 2022-04-13 21:47:00 Ave Butterfield [facility] CONSENT/REFUSAL FOR DIAGNOSIS AND TREATMENT 2022-04-13 21:27:36 Doctor Unassigned, [place] [facility] POCT TEST 2022-01-18 01:54:00 Beti Diego ra [facility] URINALYSIS 2022-01-18 01:45:00 Gabbie Diego [facility] NOTICE OF PRIVACY PRACTICES 2022-01-18 01:24:56 Doctor Unassigned, [place] [facility] CONSENT/REFUSAL FOR DIAGNOSIS AND TREATMENT 2022-01-18 01:24:02 Doctor Unassigned, [place] [facility] POCT TEST 2021-01-14 21:08:00 Bishnu Mar [facility] URINALYSIS 2021-01-14 21:04:00 Sharon Mar U [facility] NOTICE OF PRIVACY PRACTICES 2021-01-14 20:20:33 Doctor Unassigned, [place] [facility] CONSENT/REFUSAL FOR DIAGNOSIS AND TREATMENT 2021-01-14 20:19:39 Doctor Unassigned, [place] [facility] Encounters Start Date/Time End Date/Time Encounter Type Admission Type Attending [facility] Care Facility Care Department Encounter ID Source 2022-07-20 15:59:00 2022-07-20 18:43:00 Emergency X MIRTA AYOUB [facility] E[facility] [id number] [facility] 2022-07-20 15:59:00 2022-07-20 18:43:00 Emergency Mirta Ayoub [facility] [id number] [facility] 2022-04-13 16:51:00 2022-04-13 18:13:[address] [place] [facility] ERT [id number] [facility] 2022-04-13 16:51:00 2022-04-13 18:13:[address] [place] [facility] [id number] [facility] 2022-01-17 20:36:00 2022-01-17 22:28:00 Emergency X GABBIE DIEGO [facility] ERT [id number] [facility] 2022-01-17 20:36:00 2022-01-17 22:28:00 Emergency Gabbie Diego [facility] [id number] [facility] 2021-01-14 15:22:00 2021-01-14 17:26:00 Emergency YurimiladySharon peterson [facility] [id number] [facility] 2021-01-14 15:22:00 2021-01-14 17:26:00 Emergency X ZAID PAPITOSUALLorna [facility] ERT [id number] [facility] 2020-02-28 21:59:00 2020-02-29 00:04:00 Emergency 1 Alexandre, Amir Alexandre, Amir [facility] [id number] [facility] 2020-02-28 21:59:00 2020-02-28 21:59:00 Emergency [facility] [id number] [facility] 2020-01-02 07:09:00 2020-01-02 07:09:00 Emergency [facility] [id number] [facility] 2020-01-02 07:09:00 2020-01-02 07:09:00 Emergency Gary Haddad, Gary [facility] [id number] [facility] Results Test Description Test Time Test Comments Results Result Co mments Source [id number] 01:54:00* Test Item Value Reference Range Interpretation Comme nts POCT PREG (test code = 1605) negative On board controls acceptable with C Line (test code = 3574) present POCT PREG LOT # (test code = 3575) [id number] POCT PREG TEST DATE ( test code = 3576) 04/29/2023 Lab Interpretation (test cod e = 88522-4) Normal [facility] 21:40:27* Test Item Value Reference Range Interpretation Comme nts APPEARANCE (test code = 6098257159) Hazy Clear A COLOR (test code = 8306658181) Yellow Yellow PH (test code = 8002065865) 4.8-8.0 SP GRAVITY (test code = 0781167164) 1.003-1.030 GLU U QUAL (test code = 3364903663) Normal Normal BLOOD (test code = 4472875321) Negative Negative KETONES (test code = 3352564472) Negative Negative PROTEIN (test code = 2887-8) Negative Negative UROBILIN (test code = 8605504514) Normal Normal BILIRUBIN (test code = 9494197992) Negative Negative NITRITE (test code = 3448300011) Positive Negative A LEUK DONNY (test code = 5920139720) 250/uL Negative A RBC/HPF (test code = 6886784692) See_Comment [Automated messa ge] The system which generated this result transmitted reference range: 0 - 3 HPF. The reference range was not used to interpret this result as normal/abnormal. WBC/HPF (test code = 5397055198) See_Comment H [Automated messa ge] The system which generated this result transmitted reference range: 0 - 5 HPF. The reference range was not used to interpret this result as normal/abnormal. BACTERIA (test code = 1612846456) Many Negative A MUCOUS (test code = 2489436374) Moderate Negative LPF A SQ EPITH (test code = 6525869661) HPF Lab Interpretation (test code = 06767-6) Abnormal [facility] [id number] 21:08:00* Test Item Value Reference Range Interpretation Comme nts POCT PREG (test code = 1605) negative On board controls acceptable with C Line (test code = 3574) present POCT PREG LOT # (test code = 3575) [id number] POCT PREG TEST DATE ( test code = 3576) 06-29-2022 Lab Interpretation (test cod e = 95959-9) Normal [facility] [id number] 12:10:16 * Test Item Value Reference Range Interpretation Comme nts Neisseria gonorrhoeae, ALBERT (test code = Neisseria gonorrhoeae, ALBERT) Negative Negative N Performed At: [facility] [place] [address] [id number] Everett MD Ph:[phone] Chlamydia trachomatis, ALBERT (test code = Chlamydia trachomatis, ALBERT) Negative Negative N Urine [id number] 10:29:51* Test Item Value Reference Range Interpretation Comme nts ORGANISM (test code = ORGANISM) Enterococcus group D Ampicillin (test code = Amp) S Ciprofloxacin (test code = Cipro) S Gentamicin synergy (test code = Gent-Syn) S Levofloxacin (test code = Levo) S Linezolid (test code = Linez) S Nitrofurantoin (test code = Nitro) S Penicillin (test code = Pen) S Streptomycin synergy (test code = Strep-Syn) S Tetracycline (test code = Tetra) R Vancomycin (test code = Vanc) S Final Report (test code = Final Report) >=100,000 cfu/ml Enterococcus group D C Urine Added by [email or web address] Qualitative [id number] 23:22:47* Test Item Value Reference Range Interpretation Comme nts hCG Ur (test code = hCG Ur) Negative If the result is "Negative" in patients suspected to be , recommend retest with a sample obtained 48 to 72 hours later, or by ordering a quantitative assay. If the result is "Borderline" testing should be repeated in 48 to 72 hours. Lot # (test code = Lot #) [id number] N Expiration Dt (test code = Expiration Dt) 2021-02-27 N Neg Control (test code = Neg Control) Negative Pos Control (test code = Pos Control) Positive Internal QC (test code = Internal QC) Acceptable Beta HCG [id number] 23:21:47* Test Item Value Reference Range Interpretation Comme nts HCG, Beta Quantitative (test code = HCG, Beta Quantitative) <2.6 mIU/mL N 17-54 (Non-)?41 (Post-menopausal) Urinalysis [id number] 23:21:01* Test Item Value Reference Range Interpretation Comme nts UA WBC (test code = UA WBC) 0-5 0-5 UA RBC (test code = UA RBC) 0-5 0-5 UA Bacteria (test code = UA Bacteria) Moderate A UA Squam Epithelial (test co de = UA Squam Epithelial) 30-50 A UA Mucous (test code = UA Mucous) Moderate A Urinalysis with Culture, if [id number] 23:08:20* Test Item Value Reference Range Interpretation Comme nts UA Color (test code = UA Color) YELLO Yellow UA Appear (test code = UA Appear) SCLD Clear A UA pH (test code = UA pH) 7.0 UA Spec Grav (test code = UA Spec Grav) 1.025 1.001-1.035 UA Glucose (test code = UA Glucose) NEG Negative UA Bili (test code = UA Bili) Small mg/dL N UA Ketones (test code = UA Ketones) 15 mg/dL Negative A UA Blood (test code = UA Blood) NEG Negative UA Protein (test code = UA Protein) 30 mg/dL N UA Urobilinogen (test code = UA Urobilinogen) 1 mg/dL >0.2 A UA Nitrite (test code = UA Nitrite) NEG Negative UA Leuk Est (test code = UA Leuk Est) NEG Negative UA Micro Ind? (test code = U A Micro Ind?) Indicated Not Indicated A Comprehensive Metabolic [id number] 23:06:52* Test Item Value Reference Range Interpretation Comme nts Sodium Level (test code = So dium Level) 140.0 mmol/L 136.0-145.0 Potassium Level (test code = Potassium Level) 4.30 mmol/L 3.50-5.10 Chloride Level (test code = Chloride Level) 107.0 mmol/L 98.0-107.0 CO2 (test code = CO2) 26 mmol/L 20-31 Anion Gap (test code = Anion Gap) 7.1 mmol/L 5.0-15.0 BUN (test code = BUN) 13 mg/dL 9-23 Creatinine Level (test code = Creatinine Level) 0.66 mg/dL 0.55-1.02 BUN/Creat Ratio (test code = BUN/Creat Ratio) 19.7 ratio 10.0-20.0 Glucose Level (test code = Glucose Level) 86 mg/dL 74-106 Calcium Level (test code = Calcium Level) 9.9 mg/dL 8.3-10.6 Alk Phos (test code = Alk Phos) 65 U/L 46-116 Bilirubin Total (test code = Bilirubin Total) 0.5 mg/dL 0.2-1.1 Albumin Level (test code = Albumin Level) 5.1 g/dL 3.2-4.8 H Protein Total (test code = Protein Total) 7.5 g/dL 5.7-8.2 ALT (test code = ALT) 16 U/L 10-49 AST (test code = AST) 20 U/L <=34 Globulin (test code = Globulin) 2.4 g/dL 2.3-3.5 A/G Ratio (test code = A/G Ratio) 2.1 g/dL 0.8-2.0 H Hemolysis (test code = Hemolysis) 0 g/dL 1-2 H Icterus (test code = Icterus) 0 g/dL 1-2 H Lipemia (test code = Lipemia) 0 g/dL 1-2 H Comprehensive Metabolic [id number] 23:06:52* Test Item Value Reference Range Interpretation Comme nts Sodium Level (test code = Sodium Level) 140.0 mmol/L 136.0-145.0 Potassium Level (test code = Potassium Level) 4.30 mmol/L 3.50-5.10 Chloride Level (test code = Chloride Level) 107.0 mmol/L 98.0-107.0 CO2 (test code = CO2) 26 mmol/L 20-31 Anion Gap (test code = Anion Gap) 7.1 mmol/L 5.0-15.0 BUN (test code = BUN) 13 mg/dL 9-23 Creatinine Level (test code = Creatinine Level) 0.66 mg/dL 0.55-1.02 BUN/Creat Ratio (test code = BUN/Creat Ratio) 19.7 ratio 10.0-20.0 Glucose Level (test code = Glucose Level) 86 mg/dL 74-106 Calcium Level (test code = Calcium Level) 9.9 mg/dL 8.3-10.6 Alk Phos (test code = Alk Phos) 65 U/L 46-116 Bilirubin Total (test code = Bilirubin Total) 0.5 mg/dL 0.2-1.1 Albumin Level (test code = Albumin Level) 5.1 g/dL 3.2-4.8 H Protein Total (test code = Protein Total) 7.5 g/dL 5.7-8.2 ALT (test code = ALT) 16 U/L 10-49 AST (test code = AST) 20 U/L <=34 Globulin (test code = Globulin) 2.4 g/dL 2.3-3.5 A/G Ratio (test code = A/G Ratio) 2.1 g/dL 0.8-2.0 H eGFR AA (test code = eGFR AA) >60 mL/min/1.73 m2 >=60 eGFR (estimated Glomerular Filtration Rate) is an estimated value, calculated from the patient's serum creatinine using the MDRD equation. It is NOT the patient's actual GFR. The eGFR provides a more clinically useful measure of kidney disease than serum creatinine alone.This calculation takes sex and race into account, if the information is provided. If the race is not provided, and the patient is -Surinames[place], multiply by 1.212. If sex is not provided, and the patient is female, multiply by 0.742. Results for patients <18 years of age have not been validated by the MDRD study and should be interpreted with caution. eGFR Result Interpretation:eGFR > or = 60 is in the Normal RangeeGFR < 60 may mean kidney diseaseeGFR < 15 may mean kidney failure Ranges recommended by the National Kidney Foundation, http://nkdep.nih.gov Hemolysis (test code = Hemolysis) 0 g/dL 1-2 H Icterus (test code = Icterus) 0 g/dL 1-2 H Lipemia (test code = Lipemia) 0 g/dL 1-2 H Lipase [id number] 23:06:52* Test Item Value Reference Range Interpretation Comme nts Lipase Level (test code = Li pase Level) 33 U/L 12-53 Comprehensive Metabolic [id number] 23:06:52* Test Item Value Reference Range Interpretation Comme nts Sodium Level (test code = Sodium Level) 140.0 mmol/L 136.0-145.0 Potassium Level (test code = Potassium Level) 4.30 mmol/L 3.50-5.10 Chloride Level (test code = Chloride Level) 107.0 mmol/L 98.0-107.0 CO2 (test code = CO2) 26 mmol/L 20-31 Anion Gap (test code = Anion Gap) 7.1 mmol/L 5.0-15.0 BUN (test code = BUN) 13 mg/dL 9-23 Creatinine Level (test code = Creatinine Level) 0.66 mg/dL 0.55-1.02 BUN/Creat Ratio (test code = BUN/Creat Ratio) 19.7 ratio 10.0-20.0 Glucose Level (test code = Glucose Level) 86 mg/dL 74-106 Calcium Level (test code = Calcium Level) 9.9 mg/dL 8.3-10.6 Alk Phos (test code = Alk Phos) 65 U/L 46-116 Bilirubin Total (test code = Bilirubin Total) 0.5 mg/dL 0.2-1.1 Albumin Level (test code = Albumin Level) 5.1 g/dL 3.2-4.8 H Protein Total (test code = Protein Total) 7.5 g/dL 5.7-8.2 ALT (test code = ALT) 16 U/L 10-49 AST (test code = AST) 20 U/L <=34 Globulin (test code = Globulin) 2.4 g/dL 2.3-3.5 A/G Ratio (test code = A/G Ratio) 2.1 g/dL 0.8-2.0 H eGFR AA (test code = eGFR AA) >60 mL/min/1.73 m2 >=60 eGFR (estimated Glomerular Filtration Rate) is an estimated value, calculated from the patient's serum creatinine using the MDRD equation. It is NOT the patient's actual GFR. The eGFR provides a more clinically useful measure of kidney disease than serum creatinine alone.This calculation takes sex and race into account, if the information is provided. If the race is not provided, and the patient is -Surinamese, multiply by 1.212. If sex is not provided, and the patient is female, multiply by 0.742. Results for patients <18 years of age have not been validated by the MDRD study and should be interpreted with caution. eGFR Result Interpretation:eGFR > or = 60 is in the Normal RangeeGFR < 60 may mean kidney diseaseeGFR < 15 may mean kidney failure Ranges recommended by the National Kidney Foundation, http://nkdep.nih.gov eGFR Non-AA (test code = eGFR Non-AA) >60.00 mL/min/1.73 m2 >=60.00 eGFR (estimated Glomerular Filtration Rate) is an estimated value, calculated from the patient's serum creatinine using the MDRD equation. It is NOT the patient's actual GFR. The eGFR provides a more clinically useful measure of kidney disease than serum creatinine alone.This calculation takes sex and race into account, if the information is provided. If the race is not provided, and the patient is -Surinamese, multiply by 1.212. If sex is not provided, and the patient is female, multiply by 0.742. Results for patients <18 years of age have not been validated by the MDRD study and should be interpreted with caution. eGFR Result Interpretation:eGFR > or = 60 is in the Normal RangeeGFR < 60 may mean kidney diseaseeGFR < 15 may mean kidney failure Ranges recommended by the National Kidney Foundation, http://nkdep.nih.gov Hemolysis (test code = Hemolysis) 0 g/dL 1-2 H Icterus (test code = Icterus) 0 g/dL 1-2 H Lipemia (test code = Lipemia) 0 g/dL 1-2 H Complete Blood Count with [id number] 22:51:58* Test Item Value Reference Range Interpretation Comme nts WBC (test code = WBC) 11.7 x10 4.4-10.5 H RBC (test code = RBC) 5.21 x10 3.75-5.20 H Hgb (test code = Hgb) 14.4 g/dL 12.2-14.8 Hct (test code = Hct) 47.9 % 36.5-44.4 H MCV (test code = MCV) 91.90 fL 80.00-100.00 MCHC (test code = MCHC) 30.10 g/dL 32.00-37.50 L MCH (test code = MCH) 27.6 pg 27.0-32.5 RDW CV (test code = RDW CV) 11.9 % 11.5-14.5 Platelets (test code = Platelets) 298.0 x10 140.0-440.0 MPV (test code = MPV) 10.1 fL N Slide Review (test code = Slide Review) Auto Auto Result crea kayce by [email or web address]_SLIDE_REV_AUTO nRBC (test code = nRBC) 0 N NRBC Abs (test code = NRBC Abs) 0.00 x10 N Automated [id number] 22:51:58* Test Item Value Reference Range Interpretation Comme nts Neutro Auto (test code = Jewel tro Auto) 59.7 % 36.0-70.0 Lymph Auto (test code = Lymph Auto) 34.8 % 12.0-44.0 Dillingham Auto (test code = Dillingham Auto) 3.9 % 0.0-11.0 Eos, Auto (test code = Eos, Auto) 0.7 % 0.0-7.0 Basophil Auto (test code = B asophil Auto) 0.3 % 0.0-2.0 Neutro Absolute (test code = Neutro Absolute) 7.0 x10 1.6-7.4 Lymph Absolute (test code = Lymph Absolute) 4.07 x10 .50-4.60 Dillingham Absolute (test code = M ramon Absolute) .46 x10 .00-1.20 Eos Absolute (test code = Eo s Absolute) 0.08 x10 0.00-0.74 Baso Absolute (test code = B aso Absolute) 0.04 x10 0.00-0.21 IG [id number] 22:51:58* Test Item Value Reference Range Interpretation Comme nts IG (test code = IG) 0.6 % 0.0-5.0 IG Abs (test code = IG Abs) 0 x10 N Wet [id number] 22:43:51Many epithelial cells Many White Blood Cells Many Bacteria No Clue Cells Seen No Trichomonas Seen No YeastXR Abdomen KUB 1 View 2020-01-02 09:02:29Patient: ADOLFO ROCHE Date/Time01/02/2020 08:51 CDTReason for Examconstipation;Abdominal painReportCLINICAL HISTORY: Abdominal pain;constipation.Location: R16.FINDINGS: No comparison studies. An AP supine view of the abdomen demonstrates a nonspecific bowel gas pattern. Thereis air within the colon. There appears to be mild stool within the right and left colon. No skeletal or soft tissue abnormalities are identified.IMPRESSION:1. Nonspecific bowel gas pattern. There appears to be mild stool within the right and left colon. Final Dictated by: MD Mahendra, HoraceDictated DT/TM: 01/02/2020 9:01 amSigned by: MD Mahendra, Demetriaigned (Electronic Signature): 01/02/2020 9:02 am
--- NOTE | 2023-06-05 16:34 | ER ---
Nurse's Notes [facility] Name: Bridgette Espinosa Age: 28 yrs Sex: Female : 1995 Arrival Date: 06/05/2023 Time: 16:20 Bed IW1 Private MD: Diagnosis: Dental caries, unspecified;Ear Pain Presentation: 06/05 16:25 Chief complaint: Patient states: Tooth ache to R upper jaw and R ear ache for 2 days. ll1 Coronavirus screen: Client denies travel out of the [place] in the last 14 days. At this time, the client does not indicate any symptoms associated with coronavirus-19. Ebola Screen: Patient denies travel to an Ebola-affected area in the 21 days before illness onset. Initial Sepsis Screen: Does the patient meet any 2 criteria? No. Patient's initial sepsis screen is negative. Does the patient have a suspected source of infection? No. Patient's initial sepsis screen is negative. Risk Assessment: Do you want to hurt yourself or someone else? Patient reports no desire to harm self or others. 16:25 Method Of Arrival: Ambulatory 1 16:25 Acuity: JAY 4 1 16:28 Onset of symptoms was June 04, 2023. 1 Triage Assessment: 16:25 General: Appears in no apparent distress. Behavior is calm, cooperative, appropriate ll1 for age. Pain: Complains of pain in ear/tooth Quality of pain is described as aching. EENT: Reports pain in jaw and ear. 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 - Social history:: Smoking status: Patient denies any tobacco usage or history of. Screenin:39 [facility] ED Fall Risk Assessment (Adult) Score/Fall Risk Level 0 - 2 = Low Risk ll1 Oriented to surroundings, Maintained a safe environment, Educated pt \T\ family on fall prevention, incl call for assistance when getting out of bed, Hourly rounding (assess needs \T\ fall precautionary measures) done. Abuse screen: Denies threats or abuse. Nutritional screening: No deficits noted. Tuberculosis screening: No symptoms or risk factors identified. Assessment: 16:39 Reassessment: No changes from previously documented assessment. Patient and/or family ll1 updated on plan of care and expected duration. Pain level reassessed. Vital Signs: 16:28 BP 107 / 68; Pulse 88; Resp 16; Temp 97.7; Pulse Ox 100% ; Pain 7/10; ll1 16:28 Pain Scale: Adult ll1 ED Course: 16:23 Patient arrived in ED. im 16:24 Arm band placed on Patient placed in an exam room, on a stretcher. ll1 16:25 Triage completed. ll1 16:25 Mike Zee MD is Attending Physician. ec2 16:39 Patient has correct armband on for positive identification. Bed in low position. Call ll1 light in reach. Provided Education on: n/a. 16:39 No provider procedures requiring assistance completed. Patient did not have IV access ll1 during this emergency room visit. Administered Medications: 16:38 Drug: Amoxicillin PO 875 mg PO once Route: PO; ll1 16:39 Follow up: Response: No adverse reaction ll1 Medication: 16:40 VIS not applicable for this client. ll1 Outcome: 16:34 Discharge ordered by . ec2 16:39 Discharged to home ambulatory, ll1 16:39 Condition: stable 16:39 Condition: stable 16:39 Discharge instructions given to patient, Instructed on discharge instructions, follow up and referral plans. medication usage, Demonstrated understanding of instructions, follow-up care, medications, Prescriptions given X 1, 16:40 Patient left the ED. ll1 Signatures: Faisal Gil RN RN ll1 Jane Higuera Mike Zee MD MD ec2 Corrections: (The following items were deleted from the chart) 16:28 16:25 Chief complaint: Patient states: Tooth and ear ache for days. ll1 ll1
--- NOTE | 2023-06-05 16:34 | EDPHYS ---
Physician Documentation [facility] Name: Bridgette Espinosa Age: 28 yrs Sex: Female : 1995 Arrival Date: 06/05/2023 Time: 16:20 Bed IW1 Private MD: ED Physician Mike Zee HPI: 06/05 16:34 This 28 yrs old Black Female presents to ER via Ambulatory with complaints of ec2 Toothache, Ear Pain. 16:34 Patient arrives today for evaluation of right upper teeth pain as well as right ear ec2 pain. States that the pain been ongoing for several days, reports no fevers or chills, no nausea or vomiting, states that she has been taking some ibuprofen with some improvement in symptoms. Patient reports that she has no fevers or chills.. 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 - Social history:: Smoking status: Patient denies any tobacco usage or history of. ROS: 16:34 Constitutional: as per hpi ec2 Exam: 16:34 Constitutional: GEN: NAD Head: atraumatic Eyes: EOMI Ears: External ears are normal. ec2 Some erythema noted around the TM bilaterally, no significant fluid appreciated. Mouth: Dental caries noted throughout the mouth, some erythema noted at the right upper gumline. CV: regular rate LUNGS: no respiratory distress ABD: non-distended SKIN: no evidence of rashes MSK: no evidence of trauma NEURO: moves all extremities equally Vital Signs: 16:28 BP 107 / 68; Pulse 88; Resp 16; Temp 97.7; Pulse Ox 100% ; Pain 7/10; ll1 16:28 Pain Scale: Adult ll1 MDM: 16:25 Patient medically screened. ec2 16:34 Data reviewed: vital signs. ED course: Patient arrives today for evaluation of right ec2 ear pain as well as right dental pain. Examination remarkable for HEENT findings as noted above. Will start on amoxicillin and have her follow-up with a dentist. Return precautions given. Instructed in [id number] medications.. Administered Medications: 16:38 Drug: Amoxicillin PO 875 mg PO once Route: PO; ll1 16:39 Follow up: Response: No adverse reaction ll1 Disposition Summary: 06/05/23 16:34 Discharge Ordered Notes: Location: Home ec2 Condition: Stable ec2 Diagnosis - Dental caries, unspecified ec2 - Ear Pain ec2 Followup: ec2 - With: Private Physician - When: - Reason: Re-evaluation by your physician Discharge Instructions: - Discharge Summary Sheet ll1 - Dental Caries, Adult ec2 Forms: - Work release form ll1 - Medication Reconciliation Form ec2 - Thank You Letter ec2 - Antibiotic Education ec2 - Prescription Opioid Use ec2 - Patient Portal Instructions ec2 - Leadership Thank You Letter ec2 Prescriptions: - Amoxicillin 875 mg Oral Tablet - take 1 tablet ORAL route every 12 hours for 10 days; 20 tablet; Refills: 0, ec2 Product Selection Permitted Signatures: Faisal Gil RN RN 1 Mike Zee MD MD ec2
[2023-06-05 16:49] VITALS: BP 107/68; TEMP 97.7; O2SAT 100
[2023-06-05] MEDS ORDERED: AMOX/K CLAV 875 MG TAB ONE (16:49)
== END 2023-06-05 16:40 | disposition home or self-care (01) ==
LOC: ER 16:20
DX: K02.9 Dental caries, unspecified (principal); H92.03 Otalgia, bilateral
CPT/HCPCS: 99283